=== PATIENT | male | born 2000 | race Caucasian/White ===

== ENCOUNTER 2021-07-01 11:40 | Emergency (ER) | payer OTHER ==
[2021-07-01 11:44] VITALS: BP 126/63; PULSE 71; TEMP 97.9; BMI 23.6
[2021-07-01] MEDS ORDERED: METHOCARBAMOL 500 MG TABLET PO ONE (12:51)
[2021-07-01] MEDS ORDERED: METHOCARBAMOL 500 MG TABLET ONE (12:58)
== END 2021-07-01 14:05 | disposition home or self-care (01) ==
LOC: JERFT 11:40
DX: M54.2 Cervicalgia (principal); G44.319 Acute post-traumatic headache, not intractable
CPT/HCPCS: 70450-TC; 72125-TC; 99284-25